=== PATIENT | female | born 2005 | race Hispanic/Latino ===

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

== ENCOUNTER 2025-07-09 00:16 | Emergency (ER) | payer SELFPAY ==
[~2025-07-09] VITALS: Ht 167.6 cm; Wt 103.4 kg
[2025-07-09 00:49] LABS: IMMATURE GRANULOCYTE ABSOLUTE 0.02 K/uL (0-1); NUCLEATED RED BLOOD CELLS 0.0 % (0.0-0.19); PLATELET COUNT (AUTO) 287 K/uL (130-400); RED BLOOD CELL COUNT(AUTO) 4.55 MIL/uL (4.00-5.50); RED CELL DISTRIBUTION WIDTH 12.3 % (11.0-15.5); WHITE BLOOD COUNT (AUTO) 8.6 K/uL (4.8-10.8)
[2025-07-09 01:00] LABS: APPEARANCE,URINE CLEAR (CLEAR); GLUCOSE, URINE (UA) NEGATIVE (NEGATIVE); LEUKOCYTE ESTERASE ,URINE NEGATIVE Leu/uL (NEGATIVE); NITRATE,URINE NEGATIVE (NEGATIVE); OCCULT BLOOD,URINE MODERATE (NEGATIVE)
[2025-07-09 01:02] LABS: ADD UA MICROSCOPIC YES
[2025-07-09 01:03] LABS: SQUAMOUS EPITHELIAL CELL,UR RARE /HPF (0-2)
[2025-07-09 01:03] LABS: CREATININE 0.6 mg/dL (0.5-1.0); GLOMERULAR FILTR. RATE CALC 132.0 mL/min (>90); GLUCOSE,RANDOM 158.0 mg/dL (70-105); SODIUM SERUM 138.0 mmol/L (136-145); UREA NITROGEN, BLOOD 14.0 mg/dL (7-18)
--- NOTE | 2025-07-09 01:34 | ERN ---
General Chief Complaint: Headache Stated Complaint: HEADACHE,DIZZINESS, POSSIBLE NEAR SYNCOPE EPISODE Time Seen by MD: 00:22 Time Seen by Midlevel: 00:22 Source: patient, family (Mom) History of Present Illness Initial Comments Patient is a 19-year-old female presenting to the emergency department for evaluation of near-syncope Allergies: Coded Allergies: No Known Allergies (Unverified Allergy, Unknown, 07/09/25) Past Medical History Past Medical History: No Pertinent History Past Surgical History: None Social History Social History: Negative, Lives with family Female( History) LMP: Jul 09, 2025 ROS Dictation CONSTITUTIONAL: Negative except for HPI HEAD/FACE: Negative except for HPI EENT: Negative except for HPI RESPIRATORY: Negative except for HPI GASTROINTESTINAL/ABDOMINAL: Negative except for HPI GENITOURINARY: Negative except for HPI MUSCULOSKELETAL: Negative except for HPI INTEGUMENTARY: Negative except for HPI NEUROLOGICAL/PSYCH: Negative except for HPI HEMATOLOGIC/LYMPHATIC: Negative except for HPI All Systems Negative, Except as noted above. 13 point review of systems assessed and all negative except for above. Physical Exam Physical Exam Dictation Vital Signs reviewed General Appearance: Alert, oriented x 3, no acute distress, well developed, nourished. Head and Face: non-traumatic. Eyes: PERRL, pink conjunctivas, eyelid no trauma, anterior chamber with arcus senilis. Ears: Pinnas intact and no signs of trauma or erythema ear canals clear and no discharge TM no erythema Nose: No discharge, no bleeding. Oropharynx: Mouth normal, tongue pink, pharynx clear,no erythema, tonsils no exudates, no abscesses noted, mucous membrane moist Neck: Supple, non-tender, no thyromegaly, no masses, no JVD, no bruits Breast:Deferred Chest:No tenderness, no crepitus, no paradoxical movement, no retractions Lungs:Clear, well-ventilated, symmetric, no rales, no wheezing, no rhonchi, no stridor, good breath sounds bilaterally Heart: Regular rate, regular rhythm, no murmur, no gallops Vascular: no peripheral edema, Abdomen: Soft, positive bowel sounds, nondistended, no guarding, nontender, no rebound, no masses no hepatomegaly, no splenomegaly, no Justice's sign, no hernias. Rectal: Deferred Genital: Deferred Neurological: Normal speech, motor function intact, sensory function intact Musculoskeletal: Neck nontender, full range of motion, back nontender, full range of motion, Extremities: nontender, full range of motion Skin: Color pink, dry, no turgor, no rash, no lacerations, no abrasions, no contusions. Lymphatic: Deferred Results Laboratory and Microbiology Lab and Micro Result Laboratory Tests Test 07/09/25 00:35 07/09/25 00:38 White Blood Count 8.6 K/uL (4.8-10.8) Red Blood Count 4.55 MIL/uL (4.00-5.50) Hemoglobin 14.4 g/dL (12.0-16.0) Hematocrit 40.8 % (36-48) Mean Corpuscular Volume 89.7 fL (80-100) Mean Corpuscular Hemoglobin 31.6 pg (27.0-33.0) Mean Corpuscular Hemoglobin Concent 35.3 g/dL (32.0-36.0) Red Cell Distribution Width 12.3 % (11.0-15.5) Platelet Count 287 K/uL (130-400) Mean Platelet Volume 10.5 fL (7.5-10.5) Immature Granulocyte % (Auto) 0.2 % (0-1) Neutrophils (%) (Auto) 47.7 % (40.0-77.0) Lymphocytes (%) (Auto) 45.9 % (21.0-51.0) Monocytes (%) (Auto) 4.4 % (3.0-13.0) Eosinophils (%) (Auto) 1.7 % (0.0-8.0) Basophils (%) (Auto) 0.1 % (0.0-5.0) Neutrophils # (Auto) 4.1 K/uL (1.8-7.7) Lymphocytes # (Auto) 3.9 K/uL (1.0-4.8) Monocytes # (Auto) 0.4 K/uL (0.1-1.0) Eosinophils # (Auto) 0.15 K/uL (0.00-0.70) Basophils # (Auto) 0.01 K/uL (0.00-0.20) Absolute Immature Granulocyte (auto 0.02 K/uL (0-1) Nucleated Red Blood Cells 0.0 % (0.0-0.19) Sodium Level 138 mmol/L (136-145) Potassium Level 3.7 mmol/L (3.5-5.1) Chloride Level 101 mmol/L (101-111) Carbon Dioxide Level 27 mmol/L (21-32) Blood Urea Nitrogen 14 mg/dL (7-18) Creatinine 0.6 mg/dL (0.5-1.0) Glomerular Filtration Rate Calc 132 mL/min (>90) Random Glucose 158 mg/dL (70-105) H Total Calcium 8.9 mg/dL (8.5-10.1) Troponin I High Sensitivity 4 ng/L (4-50) Serum Test, Qualitative NEGATIVE (NEGATIVE) Urine Color LIGHT-YELLOW (YELLOW) Urine Appearance CLEAR (CLEAR) Urine pH 5.5 (5.0-8.0) Urine Specific [place] 1.029 (1.001-1.031) Urine Protein NEGATIVE mg/dL (NEGATIVE) Urine Glucose (UA) NEGATIVE mg/dL (NEGATIVE) Urine Ketones NEGATIVE mg/dL (NEGATIVE) Urine Occult Blood MODERATE (NEGATIVE) H Urine Nitrate NEGATIVE (NEGATIVE) Urine Bilirubin NEGATIVE mg/dL (NEGATIVE) Urine Urobilinogen 0.2 mg/dL (0.2-1.0) Urine Leukocyte Esterase NEGATIVE Venita/uL Urine RBC 0-1 /HPF (0-1) Urine WBC 2-5 /HPF (0-1) H Urine Squamous Epithelial Cells RARE /HPF (0-2) Urine Bacteria FEW /HPF (None Seen) Labs Reviewed?: Yes MDM MDM: Differential diagnosis: Dehydration, anemia, urinary tract infection There are no social concerns with this patient. Prescription drug management Prescriptions will include: None Medical management and examination interpretation discussions were had by me with other qualified healthcare professionals as indicated for the patient's care. ED Course Orders Procedure Category Date Status Time Cbc With Differential LAB 07/09/25 Complete 00:26 Basic Metabolic Panel LAB 07/09/25 Complete 00: Testing, LAB 07/09/25 Complete Serum Hcg 00: Troponin I High LAB 07/09/25 Complete Sensitivity 00:26 Urinalysis Profile LAB 07/09/25 Complete 00:26 12 Lead Ekg Tracing- EKG 07/09/25 Logged Technical 00:26 Acetaminophen 325 Tab PHA 07/09/25 Complete (Tylenol 325mg Tab 01:00 Current Medications Medications (Trade) Dose Ordered Sig/Nelson Route PRN Reason Start Time Stop Time Status Last Admin Dose Admin Acetaminophen (TYLenol 325MG TAB) 650 mg ONCE ONCE PO 07/09/25 01:00 07/09/25 01:01 DC 07/09/25 01:08 Vital Signs Date Time Temp Pulse Resp B/P (MAP) Pulse Ox O2 Delivery O2 Flow Rate FiO2 07/09/25 00:44 97.7 88 17 109/94 100 Room Air* 0 21 07/09/25 00:23 97.7 81 20 130/72 99 Room Air DX & DISP Disposition: Discharge Departure Impression: Primary Impression: Near syncope Condition: Stable Additional Instructions: Today is unremarkable. There are no signs of infection. You are not anemic. Your electrolytes are normal. Your kidney function is normal. Your troponin level which is a cardiac enzyme which measures if your heart is under any sort of stress is negative. Your EKG is normal. Your urinalysis does not show any evidence of infection. You will need to follow up with your primary care doctor for further evaluation. Referrals: SELF,REFERRAL (PCP) Time of Disposition: 01:28 I have reviewed the case, and I agree with, Diagnosis and Plan I performed the substantive portion of the visit. I have reviewed and personally made and approve the management plan that is documented in the note by myself or the RYAN. I acknowledge for responsibility for the patient's management plan. TENA OROZCO PAC Jul 09, 2025 01:34
[2025-07-09 01:52] VITALS: BP 116/74; PULSE 75; RESP 15; TEMP 97.8; O2SAT 100
--- NOTE | 2025-07-09 06:36 | EKG ---
[facility] Test Date: 2025-07-09 Test Time: 00:34:09 Pat Name: KEVON FERNANDEZ Department: [facility] Room: Gender: F Display Department Manager: [id number] : 2005 Requested By: TENA OROZCO Order Number: [id number] Reading MD: Uday Cheung Measurements Intervals [place] Rate: 77 P: 15 VA: 170 QRS: -11 QRSD: 93 T: 18 QT: 377 QTc: 428 Interpretive Statements Sinus rhythm Low voltage, precordial leads No previous ECG available for comparison Electronically Signed On 07-12-2025 13:04:06 [employer] by Uday Cheung Please click the below link to view image of tracing.
== END 2025-07-09 01:57 | disposition home or self-care (01) ==
LOC: EDH 00:16
DX: R55 Syncope and collapse (principal)
CPT/HCPCS: 36415; 80048; 81001; 84484; 84703; 85025; 93005; 99284